=== PATIENT | male | born 1995 | race Hispanic/Latino ===

== ENCOUNTER 2016-06-08 09:33 | Emergency (ER) | payer OTHER ==
[~2016-06-08] VITALS: Ht 177.8 cm; Wt 68.0 kg
[~2016-06-08 09:33] MED LIST: FLEXERIL10 MG PO; MOTRIN800 MG PO
[2016-06-08 09:53] VITALS: BP 124/62
--- NOTE | 2016-06-08 10:14 | ED GENERAL ADULT ---
History of Present Illness General Chief Complaint: Lower Extremity Injury Stated Complaint: RT KNEE INJURY Source: patient Exam Limitations: no limitations Vital Signs & Intake/Output Vital Signs & Intake/Output ED Intake and Output 06/09 0000 06/08 1200 Intake Total Output Total Balance Patient 150 lb Weight Allergies Coded Allergies: NO KNOWN ALLERGIES (01/25/14) Reconcile Medications No Known Home Medications Triage Note: PT TO ED WITH C/O RIGHT KNEE PAIN X 1 WEEK, S/P PLAYING FOOTBALL AND "PULLED SOMETHING IN THERE". PT IS AMBULATORY, GAIT STABLE. Triage Nurses Notes Reviewed? yes Onset: Abrupt Duration: day(s): Timing: recent history HPI: 06/08/16 12 PM 20-year-old man was status post playing football approximately one week ago and he suddenly turned on his right knee. He's had ongoing pain. He decided to give it a a chance for the swelling to come down but now he has ongoing swelling and pain. The onset of the symptoms was abrupt, the duration has been 7 days, the severity is significant as his symptoms required him to come to the emergency department for care. Past History Travel History Traveled to [place] past 21 day No Medical History Any Pertinent Medical History? see below for history Neurological: NONE EENT: NONE Cardiovascular: NONE Respiratory: NONE Gastrointestinal: GERD Hepatic: NONE Renal: NONE Musculoskeletal: NONE Psychiatric: NONE Endocrine: NONE Blood Disorders: NONE Cancer(s): NONE MESS ATTENDANT CREW/Reproductive: NONE Surgical History Surgical History: non-contributory Psychosocial History What is your primary language Cameroonian Tobacco Use: Never used ETOH Use: denies use Illicit Drug Use: denies illicit drug use Family History Hx Contributory? No Review of Systems Review of Systems Constitutional: Reports: no symptoms. EENTM: Reports: no symptoms. Respiratory: Reports: no symptoms. Cardiovascular: Reports: no symptoms. GI: Reports: no symptoms. Genitourinary: Reports: no symptoms. Musculoskeletal: Reports: see HPI. Skin: Reports: no symptoms. Neurological/Psychological: Reports: no symptoms. Hematologic/Endocrine: Reports: no symptoms. Physical Exam Physical Exam General Appearance: well developed/nourished, alert, awake, anxious, mild distress Head: atraumatic, normal appearance Eyes: Bilateral: normal appearance, PERRL, EOMI. Ears, Nose, Throat: normal pharynx, normal ENT inspection Neck: normal inspection, supple Respiratory: normal breath sounds, chest non-tender, no respiratory distress Cardiovascular: regular rate/rhythm Peripheral Pulses: 4+ dorsalis pedis (R) Back: normal range of motion Extremities: swelling, tenderness Neurologic/Psych: no motor/sensory deficits, awake, alert, oriented x 3 Skin: intact, normal color, warm/dry Comments: physical examination is significant for swelling to the right knee. There is full range of motion but he has some discomfort. There is a negative anterior and posterior drawer sign. There is no gross ligament instability. The color of the leg is normal. He has an excellent right dorsalis pedis pulse Core Measures ACS in differential dx? No CVA/TIA Diagnosis: No Severe Sepsis Present: No Septic Shock Present: No Progress Differential Diagnoses I considered the following diagnoses in my evaluation of the patient: [ anterior cruciate ligament tear, meniscus injury, collateral ligament injury, fracture] Plan of Care: THE PATIENT WAS PLACED IN A RIGHT JEFFREY WRAP BY THE ED RN. He will take ibuprofen as needed for pain. weightbearing as tolerated. follow -up with orthopedist this week Initial ED EKG: none Departure Departure Disposition: HOME OR SELF CARE Condition: Stable Clinical Impression Primary Impression: Knee effusion, right Referrals: RORO PETERSON,SANTHOSH Hitchcock (PCP/Family) Departure Forms: Customer Survey General Discharge Information Prescriptions: Current Visit Scripts No Known Home Medications Comments X-RAY THE RIGHT KNEE SHOWN BELOW PATIENT: MANJIT GIRARD PRESENT AGE: 20 PATIENT ACCOUNT NO: [id number] : 95 LOCATION: [facility] [place] ORDERING PHYSICIAN: MICHELINE AHUJA DO SERVICE DATE: 06/08/16 EXAM TYPE: RAD - XRY-KNEE COMPLETE RIGHT EXAMINATION: XR KNEE, RIGHT CLINICAL INFORMATION: Right knee pain. COMPARISON: None TECHNIQUE: Four views of the right knee. FINDINGS: There is a large joint effusion. No joint space narrowing. There is an ossification at the patella tendon insertion on the tibial tubercle which appears chronic. Correlate for point tenderness in this location. No fracture is demonstrated. IMPRESSION: Large joint effusion. In the setting of trauma, MRI could be considered to assess for internal derangement. Probable [place]-Schlatter's disease. DICTATED BY: BRIDGETTE BUCKLEY MD DATE/TIME DICTATED:06/08/161135 [employer] ATTORNEY:NAGI DATE/TIME TRANSCRIBED:02/03/17 / 1136 CONFIDENTIAL, DO NOT COPY WITHOUT APPROPRIATE AUTHORIZATION. <Electronically signed in Other Vendor System> SIGNED BY: BRIDGETTE BUCKLEY MD 07/20 1146 Critical Care Note Critical Care Note Critical Care Time: non-applicable
--- NOTE | 2016-06-08 11:46 | RADIOLOGY REPORT ---
EXAMINATION: XR KNEE, RIGHT CLINICAL INFORMATION: Right knee pain. COMPARISON: None TECHNIQUE: Four views of the right knee. FINDINGS: There is a large joint effusion. No joint space narrowing. There is an ossification at the patella tendon insertion on the tibial tubercle which appears chronic. Correlate for point tenderness in this location. No fracture is demonstrated. IMPRESSION: Large joint effusion. In the setting of trauma, MRI could be considered to assess for internal derangement. Probable [place]-Schlatter's disease.
== END 2016-06-08 12:24 ==
LOC: ERH 09:33
DX: M25.461 Effusion, right knee (principal)
CPT/HCPCS: 73562-RT